=== PATIENT | female | born 1975 | race African-American/Black ===

== ENCOUNTER 2020-06-01 09:21 | Outpatient (CLI) | payer OTHER | END 2020-06-01 09:22 | disposition home or self-care (01) | LOC: CTENTCT 09:21 | PROVIDERS: ATTEND Student in an Organized Health Care Education/Training Program | DX: J32.9 Chronic sinusitis, unspecified (principal) | CPT/HCPCS: 70486 ==

== ENCOUNTER 2022-08-11 11:32 | Outpatient (CLI) | payer BC | END 2022-08-11 11:33 | disposition home or self-care (01) | LOC: SCSRAD 11:32 | PROVIDERS: ATTEND Nurse Practitioner Family | DX: S99.922A Unspecified injury of left foot, initial encounter (principal) ==